=== PATIENT | female | born 1975 | race Caucasian/White ===

== ENCOUNTER 2017-04-17 16:55 | Emergency (ER) | payer OTHER ==
[~2017-04-17] VITALS: Ht 165.1 cm; Wt 95.0 kg
[2017-04-17] MEDS ORDERED: CYCL10TA PO (17:11)
[2017-04-17] MEDS ORDERED: MORPHINE 4 MG/ML 1ML SYRINGE IM ONE (17:30)
[2017-04-17] MEDS ORDERED: ADACEL/BOOSTRIX VACCINE (DIPHTH/PERTUSS/ACELL/TETANUS)0.5ML SYR (90715) IM ONE (17:30)
[2017-04-17] MEDS ORDERED: BUPIVACAINE HCL 0.5% 10 ML VIAL SC ONE (18:30)
--- NOTE | 2017-04-17 18:47 | REP ---
Right TIB-fib series: Four views. History: Trauma while running a weed [place]arda. Findings: There is a linear wire-like metallic foreign body partially imbedded in the right lower extremity. I believe the course of this foreign body is directly anterior to the distal tibia in the adjacent soft tissues, although it is difficult to be confident of this. There is plantar heel spurring. Small accessory ossicles are seen adjacent to the distal fibula and at the anterior aspect of the ankle. No fracture is seen. Impression: Partially imbedded linear metallic wire-like foreign body in the pretibial soft tissues of the distal calf. No fracture seen. Signed by Arcadio Abbasi MD 04/17/2017 07:01 P
[2017-04-17] MEDS ORDERED: AUGM875T28 PO (19:00)
[2017-04-17] MEDS ORDERED: ULTR50TA8 PO (19:00)
[2017-04-17 19:09] VITALS: BP 158/82
== END 2017-04-17 19:10 | disposition home or self-care (01) ==
LOC: M ED 17:23
DX: S90.551A Superficial foreign body, right ankle, initial encounter (principal); X58.XXXA Exposure to other specified factors, initial encounter; Y92.007 Garden or yard of unspecified non-institutional (private) residence as the place of occurrence of the external cause; Y93.H9 Activity, other involving exterior property and land maintenance, building and construction; Y99.8 Other external cause status; M79.1 Myalgia; Z87.891 Personal history of nicotine dependence; Z79.899 Other long term (current) drug therapy